=== PATIENT | female | born 1970 | race American Indian/Alaskan Native ===

== ENCOUNTER 2016-08-30 15:05 | Emergency (ER) | payer OTHER ==
[2016-08-30 15:40] VITALS: BP 145/88
--- NOTE | 2016-08-30 16:02 | Emergency Department Report ---
Entered by REYNA VARGAS, acting as scribe for MONICA MG PA. Chief Complaint: Vaginal Bleeding Stated Complaint: ABDOMINAL PAIN Time Seen by Provider: 08/30/16 15:46 - HPI History of Present Illness: Pt c/o of 810 cramping low abdominal pain that began 7 days ago. Patient states she was seen at [place] last week and diagnosed w/ fibroids & ovarian cyst. Reports associated vaginal bleeding x 7 days. Notes she uses 1 menstrual pad a day for vaginal bleeding. Notes she has an appointment with her OB on . Patient states she is out of pain medication, Tylenol 3, which she was given at [facility]. Notes she was checked for anemia 2 weeks ago, and her PCP states her blood work was not normal for her. Reports taking 1 iron pill/ day. Reports urinary frequency and urgency. Denies dysuria Reports nausea. Denies vomiting. PMHx of HTN, GERD, and MVP PSHx of C section, appendectomy, and hernia repair Denies possibility of a . LMP 03/24/2016 - ROS Review of Systems: All system are negative unless stated in HPI above. - Exam Vital Signs: Vital Signs 08/30/16 15:34 Temperature 98.5 F Pulse Rate 84 Respiratory 16 Rate Blood Pressure 145/88 O2 Sat by Pulse 100 Oximetry Physical Exam: General: well nourished, well developed, 45 year old female in no acute distress and nontoxic in appearance Abdomen: Soft, normal bowel sounds in all quadrants and negative CVA tenderness bilaterally. No guarding or rebound. Pelvic tenderness present. MSE screening note: Focused history and physical exam performed. Due to findings the following was ordered: see below ED Medical Decision Making - Medical Decision Making MDM: Patient screened by provider in triage area. Appropriate protocol initiated. Patient to be seen by MD on main ED side. ED Disposition for MSE Condition: Stable This documentation as recorded by the scribe,REYNA VARGAS,accurately reflects the service I personally performed and the decisions made by me,MONICA MG PA.
[2016-08-30 16:14] LABS: Basophils % (Auto) 0.5 % (0.0-1.8); Eosinophils % (Auto) 1.4 % (0.0-4.3); Hematocrit 33.6 % (30.3-42.9); Hemoglobin 11.1 gm/dl (10.1-14.3); Mean Corpuscular HGB Conc 33 % (30-34); Mean Corpuscular Hemoglobin 29 pg (28-32); Mean Corpuscular Volume 87 fl (79-97); Platelet Count 274 K/mm3 (140-440); Red Blood Count 3.88 M/mm3 (3.65-5.03); Red Cell Distribution Width 14.4 % (13.2-15.2); White Blood Count 7.2 K/mm3 (4.5-11.0)
[2016-08-30 16:24] LABS: INR 0.97 (0.87-1.13); Partial Thromboplastin Time 26.3 Sec. (24.2-36.6)
[2016-08-30 16:33] LABS: Anion Gap 17 mmol/L; Blood Urea Nitrogen 18 mg/dL (7-17); Calcium 9.5 mg/dL (8.4-10.2); Carbon Dioxide 29 mmol/L (22-30); Glucose 100 mg/dL (65-100); Potassium 3.7 mmol/L (3.6-5.0); Sodium 141 mmol/L (137-145)
[2016-08-30 17:02] LABS: Bacteria,Urine 1+ /HPF (Negative); Bilirubin,Urine NEG (Negative); Blood,Urine LG (Negative); Ketones,Urine TR mg/dL (Negative); Leukocyte Esterase,Urine NEG (Negative); Mucus,Urine 3+ /HPF; Nitrite,Urine NEG (Negative); WBC,Urine < 1.0 /HPF (0.0-6.0)
[2016-08-30] MEDS ORDERED: TYLENOL #3 PO ONE (19:33)
--- NOTE | 2016-08-30 19:33 | Emergency Department Report ---
HPI - General Chief Complaint: Vaginal Bleeding Time Seen by Provider: 08/30/16 19:22 - HPI HPI: Pt is a 45-year-old female presents to the ED complaining of lower pelvic pain for the past 7 days. Patient states she was seen 1 week at [facility] where an ultrasound was done and she was told she had fibroids with right ovarian cyst. Patient admits mild intermittent bleeding for the past week. She states she is not out of her medications and states that she hasn't appointment to see the [facility] MACHINIST APPRENTICE 09/10/2016. States last normal menstrual period was March 24. Patient states is thin she's had intermittent menstrual spotting. Patient states she has had no headache, lightheadedness, blurry vision, shortness of breath, chest pain or any other problems ED Past Medical Hx - Past Medical History Hx Hypertension: Yes Hx GERD: Yes Additional medical history: MVP - Surgical History Additional Surgical History: C section, appendectomy, hernia repair - Social History Smoking Status: Never Smoker Substance Use Type: None - Medications Home Medications: Home Medications Medication Instructions Recorded Confirmed Last Taken Type Acetaminophen/Codeine [Tylenol 1 tab PO Q6H PRN #12 tab 08/30/16 Unknown Rx /Codeine # 3 tab] Ibuprofen [Motrin] 800 mg PO Q8HR PRN #30 tablet 08/30/16 Unknown Rx Sulfamethoxazole/Trimethoprim 1 each PO BID #12 tablet 08/30/16 Unknown Rx [Bactrim DS TAB] ED Review of Systems ROS: Stated complaint: ABDOMINAL PAIN Other details as noted in HPI Constitutional: denies: chills, fever Eyes: denies: eye pain, eye discharge, vision change ENT: denies: ear pain, throat pain Respiratory: denies: cough, shortness of breath, wheezing Cardiovascular: denies: chest pain, palpitations Endocrine: no symptoms reported Gastrointestinal: denies: abdominal pain, nausea, diarrhea Genitourinary: denies: urgency, dysuria, discharge Musculoskeletal: denies: back pain, joint swelling, arthralgia Skin: denies: rash, lesions Neurological: denies: headache, weakness, paresthesias Psychiatric: denies: anxiety, depression Hematological/Lymphatic: denies: easy bleeding, easy bruising Physical Exam - Physical Exam Vital Signs: Vital Signs 08/30/16 15:34 Temperature 98.5 F Pulse Rate 84 Respiratory 16 Rate Blood Pressure 145/88 O2 Sat by Pulse 100 Oximetry Physical Exam: GENERAL: Alert and oriented x3, no apparent distress, Normal Gait, atraumatic. HEAD: Head is normocephalic and a-traumatic. EYES: Extra ocular muscles are intact. Pupils are equal, round, and reactive to light and accommodation. MOUTH:Mouth is well hydrated and without lesions. Tonsils nonerythematous or swollen, Uvula midline, Tongue not elevated. Mucous membranes are moist. Posterior pharynx clear, no exudate or lesions. Patent airways. NECK: Supple. Non edematous, No carotid bruits. No lymphadenopathy or thyromegaly. No C-spine tenderness LUNGS: Symetrical with respiration, No wheezing, no rales or crackles, CTAB. HEART: S1, S2 present, regular rate and rhythm without murmur, no rubs, no gallops. Non tender to palpation ABDOMEN: No organomegaly was noted,Positive bowel sounds, soft, and non- distended. . Nontender to palpation on all Quadrants, NO CVA tenderness. SKIN: Warm and dry, No lesions, No ulceration or induration present. ED Course Vital Signs 08/30/16 15:34 Temperature 98.5 F Pulse Rate 84 Respiratory 16 Rate Blood Pressure 145/88 O2 Sat by Pulse 100 Oximetry ED Medical Decision Making - Lab Data Result diagrams: 08/30/16 15:59 08/30/16 15:59 - Medical Decision Making Is a 45-year-old female presents with a urinary tract infection. ED course: CBC, BMP, cough studies, urinalysis ordered. H&H normal, urinalysis positive for bacteria. Discussed this finding with the patient. Discussed with patient to follow up with primary care physician as well as Her appointment for [facility]IST APPRENTICE September 10. Signs are normal patient has no acute distress discussed the patient was sent home on pain medication and can take on to follow up with primary [facility] [place]. Discussed with the patient is experiencing any worsening symptoms to return to ED. Critical care attestation.: If time is entered above; I have spent that time in minutes in the direct care of this critically ill patient, excluding procedure time. ED Disposition Clinical Impression: Dysmenorrhea UTI (urinary tract infection) Qualifiers: Urinary tract infection type: acute cystitis Hematuria presence: without hematuria Qualified Code(s): N30.00 - Acute cystitis without hematuria Disposition: DC- TO HOME OR SELFCARE Is pt being admited?: No Does the pt Need Aspirin: No Condition: Stable Instructions: Urinary Tract Infection in Women (ED), Ovarian Cyst (ED), Uterine Fibroids (ED) Prescriptions: Acetaminophen/Codeine [Tylenol /Codeine # 3 tab] 1 tab PO Q6H PRN #12 tab PRN Reason: Pain Ibuprofen [Motrin] 800 mg PO Q8HR PRN #30 tablet PRN Reason: Pain Sulfamethoxazole/Trimethoprim [Bactrim DS TAB] 1 each PO BID #12 tablet Referrals: ARIANNE BELTRE [Primary Care Provider] - 3-5 Days Forms: Work/School Release Form(ED), Accompanied Note Time of Disposition: 20:19
== END 2016-08-30 20:28 | disposition home or self-care (01) ==
LOC: ED 15:05
DX: N30.00 Acute cystitis without hematuria (principal); N94.6 Dysmenorrhea, unspecified; I10 Essential (primary) hypertension; K21.9 Gastro-esophageal reflux disease without esophagitis
CPT/HCPCS: 36415; 80048; 81001; 81025; 85025; 85610; 85730; 86850; 86900; 86901; 99283

== ENCOUNTER 2017-02-02 15:06 | Emergency (ER) | payer OTHER ==
[2017-02-02 15:21] VITALS: BP 116/75
[2017-02-02 16:25] LABS: Basophils % (Auto) 0.3 % (0.0-1.8); Eosinophils % (Auto) 1.7 % (0.0-4.3); Hematocrit 32.6 % (30.3-42.9); Hemoglobin 10.8 gm/dl (10.1-14.3); Mean Corpuscular HGB Conc 33 % (30-34); Mean Corpuscular Hemoglobin 30 pg (28-32); Mean Corpuscular Volume 89 fl (79-97); Platelet Count 268 K/mm3 (140-440); Red Blood Count 3.66 M/mm3 (3.65-5.03); Red Cell Distribution Width 12.9 % (13.2-15.2); White Blood Count 5.9 K/mm3 (4.5-11.0)
[2017-02-02 16:34] LABS: Alanine Aminotransferase 13 units/L (7-56); Albumin 3.8 g/dL (3.9-5); Albumin/Globulin Ratio 1.2 %; Alkaline Phosphatase 105 units/L (35-129); Anion Gap 17 mmol/L; BUN/Creatinine Ratio 18; Bilirubin,Total < 0.20 mg/dL (0.1-1.2); Blood Urea Nitrogen 9 mg/dL (7-17); Carbon Dioxide 27 mmol/L (22-30); Chloride 100.8 mmol/L (98-107); Glucose 117 mg/dL (65-100); Potassium 3.6 mmol/L (3.6-5.0); Sodium 141 mmol/L (137-145); Total Protein 7.1 g/dL (6.3-8.2)
[2017-02-02 18:53] LABS: Bacteria,Urine 1+ /HPF (Negative); Bilirubin,Urine NEG (Negative); Blood,Urine NEG (Negative); Ketones,Urine NEG (Negative); Leukocyte Esterase,Urine NEG (Negative); Mucus,Urine FEW /HPF; Nitrite,Urine NEG (Negative); Protein,Urine <15 mg/dL mg/dL (Negative); Urobilinogen,Urine < 2.0 mg/dL (<2.0)
== END 2017-02-02 21:31 ==
LOC: ED 15:06
DX: M62.830 Muscle spasm of back (principal); Z53.21 Procedure and treatment not carried out due to patient leaving prior to being seen by health care provider
CPT/HCPCS: 36415; 80053; 81001; 85025